=== PATIENT | male | born 1955 | race Caucasian/White ===

== ENCOUNTER → 2017-02-02 | Outpatient (CLI) | payer MEDICARE ==
[~2017-02-02] MED LIST: ATEN50TA41 PO; LISI1TAB7 PO; LORA1TAB PO; NAPR220C2 PO
== END | disposition home or self-care (01) ==
LOC: ROC 09:23
PROVIDERS: ATTEND Radiology Radiation Oncology
DX: C20 Malignant neoplasm of rectum (principal)
CPT/HCPCS: G0463

== ENCOUNTER → 2017-05-06 | Outpatient (CLI) | payer MEDICARE ==
[~2017-05-06] MED LIST changes: +OMNIPAQUE 350 MG/ML, 100ML BOTTLE ONE
[2017-05-06 12:47] LABS: BLOOD UREA NITROGEN 13 mg/dL (7-18)
== END | disposition home or self-care (01) ==
LOC: CFH 10:01
PROVIDERS: ATTEND Radiology Radiation Oncology
DX: C20 Malignant neoplasm of rectum (principal); I10 Essential (primary) hypertension; Z92.3 Personal history of irradiation
CPT/HCPCS: 36415; 71260; 74177; 82565; 84520; Q9967

== ENCOUNTER → 2017-05-11 | Outpatient (CLI) | payer MEDICARE ==
[~2017-05-11] MED LIST changes: -OMNIPAQUE 350 MG/ML, 100ML BOTTLE ONE
== END | disposition home or self-care (01) ==
LOC: ROC 08:52
PROVIDERS: ATTEND Radiology Radiation Oncology
DX: Z08 Encounter for follow-up examination after completed treatment for malignant neoplasm (principal); C20 Malignant neoplasm of rectum; Z92.3 Personal history of irradiation; Z98.890 Other specified postprocedural states
CPT/HCPCS: G0463

== ENCOUNTER → 2018-03-15 | Outpatient (CLI) | payer MEDICARE ==
[~2018-03-15] MED LIST changes: +OMNIPAQUE 350 MG/ML, 100ML BOTTLE ONE; +OMNIPAQUE 350 MG/ML, 150 ML BOTTLE ONE
== END | disposition home or self-care (01) ==
LOC: CFH 11:53
PROVIDERS: ATTEND Internal Medicine Hematology & Oncology
DX: C20 Malignant neoplasm of rectum (principal); M47.896 Other spondylosis, lumbar region
CPT/HCPCS: 71260; 74177; 82565; Q9967

== ENCOUNTER 2021-01-03 06:55 | Day surgery (SDC) | payer MEDICARE ==
[~2021-01-03] VITALS: Ht 182.9 cm; Wt 98.2 kg
[~2021-01-03 06:55] MED LIST changes: +LISI1TAB20 PO; -LISI1TAB7 PO; -OMNIPAQUE 350 MG/ML, 100ML BOTTLE ONE; -OMNIPAQUE 350 MG/ML, 150 ML BOTTLE ONE
[2021-01-03 07:21] VITALS: BP 124/85
[2021-01-03] MEDS ORDERED: CHLORHEXIDINE 15 ML UDC PO ONE (07:30)
[2021-01-03] MEDS ORDERED: PROPOFOL 50 ML ONE (07:31)
[2021-01-03] MEDS ORDERED: MIDAZOLAM 1 MG/ML, 2ML ONE (07:31)
[2021-01-03] MEDS ORDERED: POTA25TA PO (07:40)
[2021-01-03] MEDS ORDERED: ASPI81TA45 PO (07:40)
[2021-01-03] MEDS ORDERED: LACTATED RINGERS 1,000 ML IV SCH (08:00)
[2021-01-03] MEDS ORDERED: GLYCOPYRROLATE 0.2MG/1ML, 5ML ONE (08:05)
== END 2021-01-03 09:30 | disposition home or self-care (01) ==
LOC: OUT 06:55
PROVIDERS: ATTEND Colon & Rectal Surgery
DX: D12.5 Benign neoplasm of sigmoid colon (principal); I10 Essential (primary) hypertension; Z79.899 Other long term (current) drug therapy; Z85.048 Personal history of other malignant neoplasm of rectum, rectosigmoid junction, and anus
CPT/HCPCS: 45380; 45381; 88305; 93005; A4648; J2250; J2704; J7120